=== PATIENT | female | born 1950 | race Caucasian/White ===

== ENCOUNTER → 2018-01-25 10:09 | Outpatient (CLI) | payer MEDICARE, OTHER, SELFPAY ==
[2018-01-26 10:29] LABS: Absolute Lymphocyte Count 2.17 X10^3/ul (0.83-4.51); Absolute Neutrophil Count 5.7 X10^3/uL (2.0-7.7); Basophil# 0.05 X10^3/uL; Basophil% 0.5 % (0-1); Eosinophil# 0.34 X10^3/uL; Eosinophils% 3.7 % (0-5); Hematocrit 38.6 % (37-47); Hemoglobin 11.9 g/dl (12.0-15.0); Lymphocyte # 2.17 X10^3/ul (4.0); Lymphocyte % 23.8 % (19-41); Mean Corp Hgb Conc 30.8 g/gl (32-36); Mean Corpuscular Hgb 25.9 pg (27.0-32.0); Mean Corpuscular Volume 83.9 fL (81-99); Mean Platelet Vol. 12.3 fl (6.2-12.0); Monocyte# 0.81 X10^3/uL; Monocyte% 8.9 % (0-10); Neutrophil # 5.72 X10^3/uL (2.7-7.7); Neutrophil % 62.7 % (47-70); Platelet Count 309 K/mm3 (150-450); RBC Distribution Width SD 48.5 fl (35.1-43.9); White Blood Count 9.1 K/mm3 (4.4-11.0)
[2018-01-26 10:30] LABS: POSITIVE COUNT NO; POSITIVE DIFFERENTIAL NO; POSITIVE MORPHOLOGY NO
[2018-01-26 10:40] LABS: ALB/GLOB Ratio 1.1 RATIO (0.9-2.4); AST(SGOT) 20 U/L (15-37); Alanine Aminotransfer ALT/SGPT 29 U/L (13-56); Albumin, Serum 4.2 g/dL (3.2-5.0); Alkaline Phosphatase 87 U/L (45-117); Anion Gap 10 (5-15); BUN 24 mg/dL (7-18); BUN/Creat Ratio 24.8 RATIO (10-20); Calcium,Total 9.6 mg/dL (8.5-10.1); Chloride 102 mmol/L (98-107); Cholesterol 211 mg/dL (200); Creatinine, Serum 0.97 mg/dL (0.55-1.02); EST Glomerular Filtration Rate 61 mL/min (>60); Est Glom Filt Rate - Afr Amer 73 mL/min (>60); Globulin 3.8 g/dL (2.2-4.2); Glucose 108 mg/dL (74-106); High Density Lipoprotein 47 mg/dL; Sodium Level 140 mmol/L (136-145); Triglycerides 145 mg/dL; Very Low Density Lipoprotein 29 mg/dL (5-40)
== END ==
PROVIDERS: Family Provider Nurse Practitioner; PCP Nurse Practitioner; Referring Provider Nurse Practitioner; Visit Provider Nurse Practitioner
DX: E11.65 Type 2 diabetes mellitus with hyperglycemia (principal); K58.9 Irritable bowel syndrome, unspecified; K21.0 Gastro-esophageal reflux disease with esophagitis
CPT/HCPCS: 80053; 80061; 85025

== ENCOUNTER → 2018-06-02 21:26 | Outpatient (CLI) | payer MEDICARE, OTHER, SELFPAY ==
[2018-06-02 22:25] LABS: Thyroid Stim Hormone (TSH) 2.14 uIU/mL (0.358-3.74)
== END ==
PROVIDERS: Family Provider Nurse Practitioner; PCP Nurse Practitioner; Referring Provider Nurse Practitioner; Visit Provider Nurse Practitioner
DX: E78.00 Pure hypercholesterolemia, unspecified (principal)
CPT/HCPCS: 84443

== ENCOUNTER → 2018-11-27 18:12 | Outpatient (CLI) | payer MEDICARE, OTHER, SELFPAY ==
[2018-11-27 09:50] VITALS: BMI 33.3
[2018-11-27 18:33] LABS: Absolute Lymphocyte Count 1.48 X10^3/uL (0.83-4.51); Absolute Neutrophil Count 6.1 X10^3/uL (2.0-7.7); Basophil# 0.07 X10^3/uL; Basophil% 0.8 % (0-1); Eosinophil# 0.18 X10^3/uL; Hematocrit 43.9 % (37-47); Hemoglobin 14.2 g/dL (12.0-15.0); Lymphocyte # 1.48 X10^3/ul (4.0); Lymphocyte % 16.8 % (19-41); Mean Corp Hgb Conc 32.3 g/dL (32-36); Mean Corpuscular Hgb 30.5 pg (27.0-32.0); Mean Corpuscular Volume 94.4 fL (81-99); Mean Platelet Vol. 11.4 fl (6.2-12.0); Monocyte# 0.85 X10^3/uL; Monocyte% 9.7 % (0-10); NRBC Flagged by Analyzer 0 % (0-5); Neutrophil # 6.14 X10^3/uL (2.7-7.7); Neutrophil % 69.8 % (47-70); POSITIVE COUNT YES; Platelet Count 255 K/mm3 (150-450); RBC Distribution Width CV 13.6 % (11.6-14.6); Red Blood Count 4.65 M/mm3 (4.2-5.4); White Blood Count 8.8 K/mm3 (4.4-11.0)
[2018-11-27 18:35] LABS: Differential Indicated SCAN CRITERIA MET
[2018-11-27 18:37] LABS: BUN 21 mg/dL (7-18); Creatinine, Serum 0.97 mg/dL (0.55-1.02); Glucose 206 mg/dL (74-106)
[2018-11-27 18:38] LABS: AST(SGOT) 15 U/L (15-37); Alanine Aminotransfer ALT/SGPT 28 U/L (13-56); Albumin, Serum 3.9 g/dL (3.2-5.0); Alkaline Phosphatase 93 U/L (45-117); Anion Gap 11 (5-15); BUN/Creat Ratio 21.7 RATIO (10-20); Calcium,Total 9.3 mg/dL (8.5-10.1); Chloride 104 mmol/L (98-107); EST Glomerular Filtration Rate 61 mL/min (>60); Est Glom Filt Rate - Afr Amer 73 mL/min (>60); Ferritin 38 ng/mL (8-252); Globulin 3.9 g/dL (2.2-4.2); Iron Binding Capacity,Total 386 ug/dL (250-450); Potassium 4.5 mmol/L (3.5-5.1); Protein, Total 7.8 g/dL (6.4-8.2); Sodium Level 141 mmol/L (136-145); Thyroid Stim Hormone (TSH) 1.23 uIU/mL (0.358-3.74)
[2018-11-27 18:51] LABS: Differential Comment SCANNED
[2018-11-29 09:19] LABS: Vitamin B12 789 pg/mL (211-911)
== END ==
PROVIDERS: Family Provider Nurse Practitioner; PCP Nurse Practitioner; Referring Provider Nurse Practitioner; Visit Provider Nurse Practitioner
DX: E11.9 Type 2 diabetes mellitus without complications (principal); D50.9 Iron deficiency anemia, unspecified; R53.83 Other fatigue; E53.8 Deficiency of other specified B group vitamins
CPT/HCPCS: 80053; 82607; 82728; 83550; 84443; 85025

== ENCOUNTER → 2019-08-04 | Outpatient (CLI) | payer MEDICARE, OTHER, SELFPAY ==
[2019-08-04 19:28] VITALS: BMI 32.8
[2019-08-04 20:43] LABS: Absolute Lymphocyte Count 2.35 X10^3/uL (0.83-4.51); Absolute Neutrophil Count 5.9 X10^3/uL (2.0-7.7); Basophil# 0.08 X10^3/uL; Basophil% 0.8 % (0-1); Eosinophil# 0.19 X10^3/uL; Hematocrit 43.1 % (37-47); Lymphocyte # 2.35 X10^3/ul (4.0); Lymphocyte % 24.8 % (19-41); Mean Corp Hgb Conc 32.5 g/dL (32-36); Mean Corpuscular Hgb 30.3 pg (27.0-32.0); Mean Corpuscular Volume 93.3 fL (81-99); Mean Platelet Vol. 11.1 fl (6.2-12.0); Monocyte# 0.87 X10^3/uL; Monocyte% 9.2 % (0-10); NRBC Flagged by Analyzer 0 % (0-5); Neutrophil # 5.94 X10^3/uL (2.7-7.7); Neutrophil % 62.6 % (47-70); Platelet Count 322 K/mm3 (150-450); RBC Distribution Width CV 13.3 % (11.6-14.6); RBC Distribution Width SD 44.8 fl (35.1-43.9); Red Blood Count 4.62 M/mm3 (4.2-5.4); White Blood Count 9.5 K/mm3 (4.4-11.0)
[2019-08-04 20:58] LABS: ALB/GLOB Ratio 1.1 RATIO (0.9-2.4); AST(SGOT) 22 U/L (15-37); Alanine Aminotransfer ALT/SGPT 37 U/L (13-56); Albumin, Serum 4.1 g/dL (3.2-5.0); Alkaline Phosphatase 98 U/L (45-117); Anion Gap 12 (5-15); BUN 19 mg/dL (7-18); BUN/Creat Ratio 18.4 RATIO (10-20); Calcium,Total 9.2 mg/dL (8.5-10.1); Chloride 106 mmol/L (98-107); Creatinine, Serum 1.03 mg/dL (0.55-1.02); EST Glomerular Filtration Rate 56 mL/min (>60); Est Glom Filt Rate - Afr Amer 68 mL/min (>60); Globulin 3.7 g/dL (2.2-4.2); Glucose 218 mg/dL (74-106); Potassium 4.1 mmol/L (3.5-5.1); Protein, Total 7.8 g/dL (6.4-8.2); Sodium Level 140 mmol/L (136-145); Thyroid Stim Hormone (TSH) 2.79 uIU/mL (0.358-3.74)
== END | disposition home or self-care (01) ==
PROVIDERS: PCP Nurse Practitioner; Referring Provider Nurse Practitioner; Visit Provider Nurse Practitioner
DX: N30.90 Cystitis, unspecified without hematuria (principal); R19.5 Other fecal abnormalities; E03.9 Hypothyroidism, unspecified
CPT/HCPCS: 80053; 84443; 85025

== ENCOUNTER → 2019-08-16 08:53 | Outpatient (CLI) | payer MEDICARE, OTHER, SELFPAY ==
[2019-08-04 19:28] VITALS: BMI 32.8
--- NOTE | 2019-08-16 09:02 | VDLE_ITS ---
Reason For Study: Edema left leg Procedure LEFT Exam performed in department. CFV is compressible, spontaneous, phasic, competent, and demonstrates normal augmentation. FV is compressible, spontaneous, phasic, competent and demonstrates normal augmentation. POP V is compressible, spontaneous, phasic, competent and demonstrates normal augmentation. T/P Trunk is compressible. PTV is compressible. LT PerV is compressible. SFJ is competent and measures 0.64 x 0.65 cm. GSV proximal thigh measures 0.42 x 0.42 cm. GSV at knee measures 0.41 x 0.42 cm. GSV is competent throughout. SSV at junction is competent and measures 0.21 x 0.20 cm. Interpretation Summary Deep veins of the left lower extremity are patent and compressible segmentally. There is no evidence of left lower extremity deep vein thrombosis. Valvular competence appears intact within the proximal deep venous system on the left . The left great saphenous vein appears patent and compressible segmentally. The left sapheno-femoral junction is competent . The left great saphenous vein appears segmentally competent. The left small saphenous vein is patent and competent. Ordering Physician: Edith Jefferson Referring Physician: Edith Jefferson Performed By: Macie Pacheco RVT
== END ==
PROVIDERS: PCP Nurse Practitioner; Referring Provider Nurse Practitioner; Visit Provider Nurse Practitioner
DX: R60.0 Localized edema (principal); I73.9 Peripheral vascular disease, unspecified
CPT/HCPCS: 93971

== ENCOUNTER → 2019-09-13 | Outpatient (CLI) | payer MEDICARE, OTHER, SELFPAY ==
[2019-09-13 14:59] VITALS: BMI 32.6
== END | disposition home or self-care (01) ==
LOC: LABSPEC 09-14 08:37
PROVIDERS: PCP Nurse Practitioner; Referring Provider Nurse Practitioner; Visit Provider Nurse Practitioner
DX: E11.65 Type 2 diabetes mellitus with hyperglycemia (principal); E03.9 Hypothyroidism, unspecified

== ENCOUNTER → 2019-09-13 | Outpatient (CLI) | payer MEDICARE, OTHER, SELFPAY ==
[2019-09-13 14:59] VITALS: BMI 32.6
[2019-09-13 22:10] LABS: Absolute Lymphocyte Count 2.53 X10^3/uL (0.83-4.51); Absolute Neutrophil Count 7.2 X10^3/uL (2.0-7.7); Basophil# 0.08 X10^3/uL; Basophil% 0.7 % (0-1); Eosinophil# 0.16 X10^3/uL; Eosinophils% 1.5 % (0-5); Hematocrit 43.9 % (37-47); Hemoglobin 14.2 g/dL (12.0-15.0); Lymphocyte # 2.53 X10^3/ul (4.0); Lymphocyte % 23.1 % (19-41); Mean Corp Hgb Conc 32.3 g/dL (32-36); Mean Corpuscular Hgb 30.1 pg (27.0-32.0); Mean Platelet Vol. 11.3 fl (6.2-12.0); Monocyte# 0.89 X10^3/uL; Monocyte% 8.1 % (0-10); NRBC Flagged by Analyzer 0 % (0-5); Neutrophil # 7.22 X10^3/uL (2.7-7.7); Neutrophil % 66.1 % (47-70); Platelet Count 305 K/mm3 (150-450); RBC Distribution Width CV 13.3 % (11.6-14.6); RBC Distribution Width SD 44.9 fl (35.1-43.9); Red Blood Count 4.72 M/mm3 (4.2-5.4); White Blood Count 10.9 K/mm3 (4.4-11.0)
[2019-09-13 22:35] LABS: AST(SGOT) 20 U/L (15-37); Alanine Aminotransfer ALT/SGPT 35 U/L (13-56); Alkaline Phosphatase 103 U/L (45-117); Anion Gap 12 (5-15); BUN 17 mg/dL (7-18); BUN/Creat Ratio 19.8 RATIO (10-20); Calcium,Total 9.2 mg/dL (8.5-10.1); Chloride 101 mmol/L (98-107); Cholesterol 241 mg/dL (200); Creatinine, Serum 0.86 mg/dL (0.55-1.02); EST Glomerular Filtration Rate 69 mL/min (>60); Est Glom Filt Rate - Afr Amer 84 mL/min (>60); Glucose 156 mg/dL (74-106); High Density Lipoprotein 56 mg/dL; Potassium 3.9 mmol/L (3.5-5.1); Sodium Level 135 mmol/L (136-145); Thyroid Stim Hormone (TSH) 1.25 uIU/mL (0.358-3.74); Triglycerides 244 mg/dL; Very Low Density Lipoprotein 49 mg/dL (5-40)
== END | disposition home or self-care (01) ==
LOC: LABSPEC 21:51
PROVIDERS: PCP Nurse Practitioner; Visit Provider Nurse Practitioner
DX: E11.65 Type 2 diabetes mellitus with hyperglycemia (principal); E03.9 Hypothyroidism, unspecified
CPT/HCPCS: 80053; 80061; 84443; 85025

== ENCOUNTER → 2019-12-20 | Outpatient (CLI) | payer MEDICARE, OTHER, SELFPAY ==
[2019-12-20 15:15] VITALS: BMI 33.1
== END | disposition home or self-care (01) ==
PROVIDERS: PCP Nurse Practitioner; Referring Provider Nurse Practitioner; Visit Provider Nurse Practitioner
DX: N30.90 Cystitis, unspecified without hematuria (principal)
CPT/HCPCS: 87086; 87088

== ENCOUNTER → 2020-03-19 | Outpatient (CLI) | payer MEDICARE, SELFPAY ==
[2020-03-19 15:19] VITALS: BMI 31.6
[2020-03-19 22:22] LABS: Absolute Lymphocyte Count 2.16 X10^3/uL (0.83-4.51); Absolute Neutrophil Count 8.2 X10^3/uL (2.0-7.7); Basophil# 0.06 X10^3/uL; Basophil% 0.5 % (0-1); Eosinophil# 0.14 X10^3/uL; Eosinophils% 1.2 % (0-5); Hematocrit 44.8 % (37-47); Lymphocyte # 2.16 X10^3/ul (4.0); Lymphocyte % 18.9 % (19-41); Mean Corp Hgb Conc 31.3 g/dL (32-36); Mean Corpuscular Hgb 29.2 pg (27.0-32.0); Mean Corpuscular Volume 93.3 fL (81-99); Mean Platelet Vol. 10.8 fl (6.2-12.0); Monocyte# 0.75 X10^3/uL; Monocyte% 6.6 % (0-10); NRBC Flagged by Analyzer 0 % (0-5); Neutrophil # 8.15 X10^3/uL (2.7-7.7); Neutrophil % 71.6 % (47-70); Platelet Count 433 K/mm3 (150-450); RBC Distribution Width CV 14.1 % (11.6-14.6); RBC Distribution Width SD 47.7 fl (35.1-43.9); White Blood Count 11.4 K/mm3 (4.4-11.0)
[2020-03-19 22:43] LABS: Hemoglobin A1c 9.1 % (3.8-5.6)
== END | disposition home or self-care (01) ==
PROVIDERS: PCP Nurse Practitioner; Referring Provider Nurse Practitioner; Visit Provider Nurse Practitioner
DX: E11.65 Type 2 diabetes mellitus with hyperglycemia (principal)
CPT/HCPCS: 83036; 85025

== ENCOUNTER → 2020-10-23 | Outpatient (CLI) | payer MEDICARE, OTHER, SELFPAY ==
[2020-10-23 18:41] VITALS: BMI 30.1
[2020-10-23 21:39] LABS: Hematocrit 42.8 % (37-47); Hemoglobin 13.7 g/dL (12.0-15.0); Mean Corpuscular Hgb 29.5 pg (27.0-32.0); Mean Corpuscular Volume 92.2 fL (81-99); Platelet Count 333 K/mm3 (150-450); RBC Distribution Width CV 13.2 % (11.6-14.6); RBC Distribution Width SD 44.9 fl (35.1-43.9); Red Blood Count 4.64 M/mm3 (4.2-5.4); White Blood Count 9.2 K/mm3 (4.4-11.0)
[2020-10-23 22:12] LABS: AST(SGOT) 15 U/L (15-37); Alanine Aminotransfer ALT/SGPT 30 U/L (13-56); Albumin, Serum 3.9 g/dL (3.2-5.0); Alkaline Phosphatase 99 U/L (45-117); BUN 14 mg/dL (7-18); BUN/Creat Ratio 16.7 RATIO (10-20); Calcium,Total 9.4 mg/dL (8.5-10.1); Cholesterol 240 mg/dL (200); Creatinine, Serum 0.84 mg/dL (0.55-1.02); EST Glomerular Filtration Rate 71 mL/min (>60); Est Glom Filt Rate - Afr Amer 86 mL/min (>60); Globulin 3.9 g/dL (2.2-4.2); Glucose 158 mg/dL (74-106); Protein, Total 7.8 g/dL (6.4-8.2)
[2020-10-23 22:13] LABS: Anion Gap 12 (5-15); Chloride 104 mmol/L (98-107); High Density Lipoprotein 56 mg/dL; Sodium Level 138 mmol/L (136-145); Thyroid Stim Hormone (TSH) 2.03 uIU/mL (0.358-3.74); Triglycerides 182 mg/dL; Very Low Density Lipoprotein 36 mg/dL (5-40)
== END | disposition home or self-care (01) ==
PROVIDERS: PCP Nurse Practitioner; Visit Provider Nurse Practitioner
DX: I10 Essential (primary) hypertension (principal); D50.9 Iron deficiency anemia, unspecified; E03.9 Hypothyroidism, unspecified; E78.00 Pure hypercholesterolemia, unspecified
CPT/HCPCS: 80053; 80061; 84443; 85027

== ENCOUNTER → 2021-01-23 | Outpatient (CLI) | payer MEDICARE, OTHER, SELFPAY ==
[2021-01-23 21:58] LABS: Absolute Lymphocyte Count 2.08 X10^3/uL (0.83-4.51); Absolute Neutrophil Count 5.2 X10^3/uL (2.0-7.7); Basophil# 0.08 X10^3/uL; Eosinophil# 0.21 X10^3/uL; Eosinophils% 2.5 % (0-5); Lymphocyte # 2.08 X10^3/ul (0.83-4.51); Lymphocyte % 24.7 % (19-41); Mean Corp Hgb Conc 31.8 g/dL (32-36); Mean Corpuscular Hgb 29.7 pg (27.0-32.0); Mean Corpuscular Volume 93.2 fL (81-99); Monocyte# 0.76 X10^3/uL; NRBC Flagged by Analyzer 0 % (0-5); Neutrophil # 5.23 X10^3/uL (2.7-7.7); Neutrophil % 62.2 % (47-70); Platelet Count 354 K/mm3 (150-450); RBC Distribution Width CV 13.2 % (11.6-14.6); RBC Distribution Width SD 45.1 fl (35.1-43.9); Red Blood Count 4.72 M/mm3 (4.2-5.4); White Blood Count 8.4 K/mm3 (4.4-11.0)
[2021-01-23 22:22] LABS: AST(SGOT) 27 U/L (15-37); Alanine Aminotransfer ALT/SGPT 42 U/L (13-56); Albumin, Serum 3.8 g/dL (3.2-5.0); Alkaline Phosphatase 99 U/L (45-117); Anion Gap 7 (5-15); BUN 17 mg/dL (7-18); BUN/Creat Ratio 15.6 RATIO (10-20); Calcium,Total 9.4 mg/dL (8.5-10.1); Chloride 106 mmol/L (98-107); Cholesterol 227 mg/dL (200); Creatinine, Serum 1.09 mg/dL (0.55-1.02); EST Glomerular Filtration Rate 53 mL/min (>60); Est Glom Filt Rate - Afr Amer 64 mL/min (>60); Glucose 174 mg/dL (74-106); High Density Lipoprotein 47 mg/dL; Protein, Total 7.8 g/dL (6.4-8.2); Sodium Level 139 mmol/L (136-145); Triglycerides 227 mg/dL; Very Low Density Lipoprotein 45 mg/dL (5-40)
== END | disposition home or self-care (01) ==
PROVIDERS: PCP Nurse Practitioner; Visit Provider Nurse Practitioner
DX: I10 Essential (primary) hypertension (principal); I49.9 Cardiac arrhythmia, unspecified; E03.9 Hypothyroidism, unspecified; E11.65 Type 2 diabetes mellitus with hyperglycemia
CPT/HCPCS: 80053; 80061; 83036; 85025

== ENCOUNTER → 2021-09-02 | Outpatient (CLI) | payer MEDICARE, OTHER, SELFPAY ==
--- NOTE | 2021-09-02 12:11 | MRI_ITS ---
EXAM: MR HEAD WITHOUT AND WITH INTRAVENOUS CONTRAST CLINICAL INDICATION: increasing pain in the head new onset headaches TECHNIQUE: Multiplanar and multisequence MR images of the brain were obtained without and with intravenous contrast. This report was created using [employer] report [employer] technology. CONTRAST: IV Yes YES COMPARISON: None. FINDINGS: BRAIN AND EXTRA-AXIAL SPACES: Unremarkable. No intra- or extra-axial hemorrhage. No evidence of acute infarct. No intracranial mass or mass effect. There is preservation of the payan/white matter interface. Posterior fossa structures are unremarkable. Ventricles are appropriate for age. No hydrocephalus. Basal cisterns are patent. SELLA: Unremarkable. Normal sella turcica, pituitary gland, infundibular stalk, optic chiasm and hypothalamus. AUDITORY SYSTEM: Unremarkable. The internal auditory canals are patent. BONES/JOINTS: Unremarkable. No discrete lytic or blastic abnormalities. SINUSES: Unremarkable as visualized. Clear. MASTOID AIR CELLS: Unremarkable as visualized. Clear. ORBITS: Unremarkable as visualized. Both globes, extraocular muscles, optic nerves and retrobulbar fat appear unremarkable. VASCULATURE: Unremarkable as visualized. Normal flow voids in the major intracranial circulation. MRI/Brain W/WO Contrast IMPRESSION: Negative MRI brain without and with intravenous contrast. Electronically Signed: Petar Stallings MD at 14:23 EDT ,
--- NOTE | 2021-09-02 12:11 | MRI_ITS ---
EXAM: MR CERVICAL SPINE WITHOUT AND WITH INTRAVENOUS CONTRAST CLINICAL INDICATION: neck pain with shooting pains into head -- TECHNIQUE: Multiplanar and multisequence MR images of the cervical spine without and with intravenous contrast were performed. This report was created using [employer] report [employer] technology. CONTRAST: IV 20ML DOTAREM COMPARISON: None. FINDINGS: VERTEBRAE: There is straightening of the normal cervical lordosis. SPINAL CORD: Unremarkable in signal and morphology. SOFT TISSUES: Unremarkable. No prevertebral soft tissue swelling. LYMPH NODES: Unremarkable. There is no cervical adenopathy. DISCS/SPINAL CANAL/NEURAL FORAMINA: C2-C3: C2-3: Normal endplates. Disc dessication. Normal central canal and intervertebral neuroforamina. C3-C4: C3-4: Normal endplates. Disc dessication. Normal central canal and intervertebral neuroforamina. C4-C5: C4-5: Loss of intervertebral disc height. There is endplate spondylosis of the vertebral body. Narrowing of the left intervertebral neuroforamina. There is bilateral facet arthropathy. Posterior disc bulge. Normal spinal canal. C5-C6: C5-6: Loss of intervertebral disc height. There is endplate spondylosis of the vertebral body. Narrowing of the left intervertebral neuroforamina. There is bilateral facet arthropathy. Left paracentral disc herniation. Impression upon the anterior thecal sac. Mild compression of the left side of the spinal cord. There is narrowing of the left lateral recess. C6-C7: C6-7: Loss of intervertebral disc height. There is endplate spondylosis of the vertebral body. Narrowing of the left intervertebral neuroforamina. There is bilateral facet arthropathy. Posterior disc bulge. Normal spinal canal. C7-T1: Loss of intervertebral disc height. There is endplate spondylosis of the vertebral body. Narrowing of the bilateral intervertebral neuroforamina. There is bilateral facet arthropathy. Posterior disc bulge. Normal spinal canal. MRI/Spine Cervical W/WO Contrast IMPRESSION: 1. C4-5: Loss of intervertebral disc height. There is endplate spondylosis of the vertebral body. Narrowing of the left intervertebral neuroforamina. There is bilateral facet arthropathy. Posterior disc bulge. 2. C5-6: Loss of intervertebral disc height. There is endplate spondylosis of the vertebral body. Narrowing of the left intervertebral neuroforamina. There is bilateral facet arthropathy. Left paracentral disc herniation. Impression upon the anterior thecal sac. Mild compression of the left side of the spinal cord. There is narrowing of the left lateral recess. 3. C6-7: Loss of intervertebral disc height. There is endplate spondylosis of the vertebral body. Narrowing of the left intervertebral neuroforamina. There is bilateral facet arthropathy. Posterior disc bulge. 4. Loss of intervertebral disc height. There is endplate spondylosis of the vertebral body. Narrowing of the bilateral intervertebral neuroforamina. There is bilateral facet arthropathy. Posterior disc bulge. 5. Multilevel degenerative changes, as described above. 6. There is altered curvature of the normal cervical lordosis. This can suggest neck strain. Electronically Signed: Petar Stallings MD at 14:44 EDT ,
[2021-09-02 12:36] LABS: CREATININE FINGERSTICK < 0.9 mg/dL (0.55-1.02); EGFR FINGERSTICK > 60.0000 mL/min (>60)
== END | disposition home or self-care (01) ==
LOC: MRI 12:11
PROVIDERS: PCP Nurse Practitioner; Visit Provider Nurse Practitioner
DX: I63.9 Cerebral infarction, unspecified (principal); G43.61 Persistent migraine aura with cerebral infarction, intractable; R42 Dizziness and giddiness
CPT/HCPCS: 70553; 72156; A9575

== ENCOUNTER → 2021-11-18 | Outpatient (CLI) | payer MEDICARE, OTHER, SELFPAY ==
[2021-11-18 23:03] LABS: Absolute Lymphocyte Count 2.03 X10^3/uL (0.83-4.51); Absolute Neutrophil Count 6.1 X10^3/uL (2.0-7.7); Basophil# 0.07 X10^3/uL; Basophil% 0.8 % (0-1); Eosinophil# 0.16 X10^3/uL; Eosinophils% 1.7 % (0-5); Hematocrit 40.6 % (37-47); Hemoglobin 13.2 g/dL (12.0-15.0); Lymphocyte # 2.03 X10^3/ul (0.83-4.51); Lymphocyte % 22.2 % (19-41); Mean Corp Hgb Conc 32.5 g/dL (32-36); Mean Corpuscular Hgb 29.8 pg (27.0-32.0); Mean Corpuscular Volume 91.6 fL (81-99); Monocyte% 7.6 % (0-10); NRBC Flagged by Analyzer 0 % (0-5); Neutrophil # 6.13 X10^3/uL (2.7-7.7); Neutrophil % 66.9 % (47-70); Platelet Count 297 K/mm3 (150-450); RBC Distribution Width CV 13.4 % (11.6-14.6); RBC Distribution Width SD 45.5 fl (35.1-43.9); Red Blood Count 4.43 M/mm3 (4.2-5.4); White Blood Count 9.2 K/mm3 (4.4-11.0)
[2021-11-18 23:36] LABS: Hemoglobin A1c 11.2 % (3.8-5.6)
[2021-11-18 23:38] LABS: AST(SGOT) 25 U/L (15-37); Alanine Aminotransfer ALT/SGPT 40 U/L (13-56); Albumin, Serum 3.6 g/dL (3.2-5.0); Alkaline Phosphatase 127 U/L (45-117); Anion Gap 10 (5-15); BUN 23 mg/dL (7-18); BUN/Creat Ratio 23.6 RATIO (10-20); Calcium,Total 9.4 mg/dL (8.5-10.1); Chloride 101 mmol/L (98-107); Cholesterol 224 mg/dL (200); Creatinine, Serum 0.97 mg/dL (0.55-1.02); EST Glomerular Filtration Rate 60 mL/min (>60); Est Glom Filt Rate - Afr Amer 72 mL/min (>60); Globulin 3.6 g/dL (2.2-4.2); Glucose 452 mg/dL (74-106); High Density Lipoprotein 60 mg/dL; Potassium 4.3 mmol/L (3.5-5.1); Protein, Total 7.2 g/dL (6.4-8.2); Sodium Level 133 mmol/L (136-145); Thyroid Stim Hormone (TSH) 1.96 uIU/mL (0.358-3.74); Triglycerides 164 mg/dL; Very Low Density Lipoprotein 33 mg/dL (5-40)
== END | disposition home or self-care (01) ==
PROVIDERS: PCP Nurse Practitioner; Visit Provider Nurse Practitioner
DX: I10 Essential (primary) hypertension (principal); E11.65 Type 2 diabetes mellitus with hyperglycemia; E03.9 Hypothyroidism, unspecified
CPT/HCPCS: 80053; 80061; 83036; 84443; 85025

== ENCOUNTER → 2021-12-27 | Outpatient (CLI) | payer MEDICARE, OTHER, SELFPAY | END | disposition home or self-care (01) | PROVIDERS: PCP Nurse Practitioner; Visit Provider Nurse Practitioner | DX: R53.83 Other fatigue (principal) | CPT/HCPCS: 87086; 87088 ==

== ENCOUNTER → 2022-06-04 | Outpatient (CLI) | payer MEDICARE, OTHER, SELFPAY ==
[2022-06-04 21:08] LABS: Absolute Lymphocyte Count 2.12 X10^3/uL (0.83-4.51); Absolute Neutrophil Count 5.6 X10^3/uL (2.0-7.7); Basophil# 0.08 X10^3/uL; Basophil% 0.9 % (0-1); Eosinophil# 0.41 X10^3/uL; Eosinophils% 4.5 % (0-5); Hematocrit 38.6 % (37-47); Hemoglobin 12.7 g/dL (12.0-15.0); Lymphocyte # 2.12 X10^3/ul (0.83-4.51); Lymphocyte % 23.1 % (19-41); Mean Corp Hgb Conc 32.9 g/dL (32-36); Mean Corpuscular Hgb 30.3 pg (27.0-32.0); Mean Corpuscular Volume 92.1 fL (81-99); Mean Platelet Vol. 11.1 fl (6.2-12.0); Monocyte# 0.89 X10^3/uL; Monocyte% 9.7 % (0-10); NRBC Flagged by Analyzer 0 % (0-5); Neutrophil # 5.64 X10^3/uL (2.7-7.7); Neutrophil % 61.4 % (47-70); Platelet Count 322 K/mm3 (150-450); RBC Distribution Width CV 13.3 % (11.6-14.6); RBC Distribution Width SD 44.8 fl (35.1-43.9); Red Blood Count 4.19 M/mm3 (4.2-5.4); White Blood Count 9.2 K/mm3 (4.4-11.0)
[2022-06-04 21:25] LABS: AST(SGOT) 52 U/L (15-37); Alanine Aminotransfer ALT/SGPT 48 U/L (13-56); Albumin, Serum 3.8 g/dL (3.2-5.0); Alkaline Phosphatase 85 U/L (45-117); Anion Gap 13 (5-15); BUN 15 mg/dL (7-18); BUN/Creat Ratio 16.9 RATIO (10-20); CRP, High Sensitivity Cardiac 3.01 mg/L; Calcium,Total 9.8 mg/dL (8.5-10.1); Chloride 102 mmol/L (98-107); Cholesterol 212 mg/dL (200); Creatinine, Serum 0.89 mg/dL (0.55-1.02); EST Glomerular Filtration Rate 66 mL/min (>60); Est Glom Filt Rate - Afr Amer 80 mL/min (>60); Globulin 3.8 g/dL (2.2-4.2); Glucose 183 mg/dL (74-106); High Density Lipoprotein 53 mg/dL; Potassium 4.2 mmol/L (3.5-5.1); Protein, Total 7.6 g/dL (6.4-8.2); Sodium Level 138 mmol/L (136-145); Triglycerides 190 mg/dL; Very Low Density Lipoprotein 38 mg/dL (5-40)
== END | disposition home or self-care (01) ==
PROVIDERS: PCP Nurse Practitioner; Visit Provider Nurse Practitioner
DX: I25.10 Atherosclerotic heart disease of native coronary artery without angina pectoris (principal); K30 Functional dyspepsia; R42 Dizziness and giddiness; E66.09 Other obesity due to excess calories
CPT/HCPCS: 80053; 80061; 85025; 86141

== ENCOUNTER → 2022-06-06 | Outpatient (CLI) | payer MEDICARE, SELFPAY ==
[2022-06-06 12:56] LABS: BNP,B-Type NATRIURETIC PEPTIDE 17.3 pg/mL (0-100)
== END | disposition home or self-care (01) ==
LOC: LAB 10:59
PROVIDERS: PCP Nurse Practitioner; Referring Provider Nurse Practitioner Family; Visit Provider Nurse Practitioner Family
DX: R06.09 Other forms of dyspnea (principal)
CPT/HCPCS: 36415; 83880

== ENCOUNTER → 2022-06-18 | Outpatient (CLI) | payer MEDICARE, OTHER, SELFPAY ==
--- NOTE | 2022-06-18 12:48 | ECHOD_ITS ---
Reason For Study: Dyspnea/SOB Procedure This was a 2D Doppler, Color Flow transthoracic echocardiogram. Myocardial strain analysis was performed in this exam to aid in the assessment of cardiac function. Exam performed in department. Left Ventricle Normal size and thickness. The left ventricular ejection fraction is 65 %. Normal diastology for age. The global longitudinal strain = -18.3 % (normal). Right Ventricle Mildly dilated right ventricle. Mild global right ventricular systolic dysfunction. Atria Normal left atrium. The right atrium is mildly enlarged. Mitral Valve Mild (1+) mitral valve insufficiency. Tricuspid Valve Normal tricuspid valve. Aortic Valve Normal aortic valve. Pulmonic Valve The pulmonic valve is not well visualized. Mild (1+) pulmonic valve insufficiency. Great Vessels Normal sized aortic root. Pericardium/Pleural No pericardial effusion. MMode/2D Measurements & Calculations LVIDd: 4.9 cm IVSd: 0.94 cm Ao root diam: 2.8 cm LVIDs: 2.9 cm LVPWd: 1.0 cm RVDd: 3.3 cm FS: 41.0 % LAV(MOD-bp): 29.3 ml LVAd ap4: 21.9 cm2 SV(MOD-sp4): 36.2 ml LAV(MOD-bp) Indexed: 13.6 ml/m2 LVLd ap4: 7.1 cm LAV(MOD-sp2): 37.9 ml EDV(MOD-sp4): 54.9 ml LAV(MOD-sp4): 21.6 ml EDV(sp4-el): 57.4 ml LVAs ap4: 11.1 cm2 LVLs ap4: 5.8 cm ESV(MOD-sp4): 18.7 ml ESV(sp4-el): 17.9 ml EF(MOD-sp4): 66.0 % EF(sp4-el): 68.8 % SV(sp4-el): 39.5 ml LA A4 area: 11.2 cm2 LA dimension(2D): 3.7 cm RA A4 area: 8.5 cm2 Time Measurements MV dec time: 0.27 sec Doppler Measurements & Calculations MV E max luis a: 63.3 cm/sec Lat Peak E' Luis A: 8.7 cm/sec Med Peak E' Luis A: 7.4 cm/sec MV A max luis a: 91.4 cm/sec E/E' lat: 7.3 E/E' med: 8.6 MV E/A: 0.69 Ao V2 max: 126.8 cm/sec LV V1 max: 105.5 cm/sec MV dec slope: 236.2 cm/sec2 Ao max P.4 mmHg LV V1 max P.5 mmHg Ao V2 mean: 87.9 cm/sec Ao mean P.4 mmHg Ao V2 VTI: 26.8 cm PA V2 max: 111.8 cm/sec PI end-d luis a: 135.8 cm/sec TR max luis a: 228.4 cm/sec TR max P.9 mmHg ECHO/Echo Complete Interpretation Summary The left ventricular ejection fraction is 65 %. The global longitudinal strain = -18.3 % (normal). Mildly dilated right ventricle. Mild global right ventricular systolic dysfunction. The right atrium is mildly enlarged. Mild (1+) mitral valve insufficiency. Mild (1+) pulmonic valve insufficiency. Ordering Physician: Jarad Miller Referring Physician: Edith Jefferson Performed By: Minerva Miller, BRIAN, RVT
== END | disposition home or self-care (01) ==
PROVIDERS: PCP Nurse Practitioner; Referring Provider Nurse Practitioner Family; Visit Provider Nurse Practitioner Family
DX: R06.02 Shortness of breath (principal)
CPT/HCPCS: 93306

== ENCOUNTER → 2022-10-17 | Outpatient (CLI) | payer MEDICARE, SELFPAY ==
[2022-10-17 20:49] LABS: Absolute Lymphocyte Count 2.08 X10^3/uL (0.83-4.51); Absolute Neutrophil Count 6.6 X10^3/uL (2.0-7.7); Basophil# 0.07 X10^3/uL; Basophil% 0.7 % (0-1); Eosinophil# 0.15 X10^3/uL; Eosinophils% 1.5 % (0-5); Hematocrit 41.8 % (37-47); Hemoglobin 13.6 g/dL (12.0-15.0); Lymphocyte # 2.08 X10^3/ul (0.83-4.51); Lymphocyte % 21.3 % (19-41); Mean Corp Hgb Conc 32.5 g/dL (32-36); Mean Corpuscular Hgb 29.2 pg (27.0-32.0); Mean Corpuscular Volume 89.9 fL (81-99); Mean Platelet Vol. 11.4 fl (6.2-12.0); Monocyte# 0.79 X10^3/uL; Monocyte% 8.1 % (0-10); NRBC Flagged by Analyzer 0 % (0-5); Neutrophil # 6.62 X10^3/uL (2.7-7.7); Platelet Count 344 K/mm3 (150-450); RBC Distribution Width CV 13.5 % (11.6-14.6); Red Blood Count 4.65 M/mm3 (4.2-5.4); White Blood Count 9.8 K/mm3 (4.4-11.0)
[2022-10-17 21:09] LABS: AST(SGOT) 51 U/L (15-37); Alanine Aminotransfer ALT/SGPT 48 U/L (13-56); Albumin, Serum 3.8 g/dL (3.2-5.0); Alkaline Phosphatase 108 U/L (45-117); Anion Gap 10 (5-15); BUN 16 mg/dL (7-18); BUN/Creat Ratio 15.1 RATIO (10-20); CRP, High Sensitivity Cardiac 4.64 mg/L; Calcium,Total 9.1 mg/dL (8.5-10.1); Chloride 99 mmol/L (98-107); Cholesterol 219 mg/dL (200); Creatinine, Serum 1.06 mg/dL (0.55-1.02); EST Glomerular Filtration Rate 54 mL/min (>60); Est Glom Filt Rate - Afr Amer 65 mL/min (>60); Globulin 3.9 g/dL (2.2-4.2); Glucose 407 mg/dL (74-106); High Density Lipoprotein 47 mg/dL; Potassium 4.2 mmol/L (3.5-5.1); Protein, Total 7.7 g/dL (6.4-8.2); Sodium Level 133 mmol/L (136-145); Triglycerides 291 mg/dL; Very Low Density Lipoprotein 58 mg/dL (5-40)
[2022-10-17 21:14] LABS: Hemoglobin A1c 12.1 % (3.8-5.6)
== END | disposition home or self-care (01) ==
PROVIDERS: PCP Nurse Practitioner; Visit Provider Nurse Practitioner
DX: I10 Essential (primary) hypertension (principal); E11.65 Type 2 diabetes mellitus with hyperglycemia; E03.9 Hypothyroidism, unspecified; E66.09 Other obesity due to excess calories; R53.83 Other fatigue
CPT/HCPCS: 80053; 80061; 83036; 84443; 85025; 86141

== ENCOUNTER → 2023-10-15 | Outpatient (CLI) | payer MEDICARE, OTHER, SELFPAY ==
[2023-10-15 21:10] LABS: Absolute Lymphocyte Count 2.12 X10^3/uL (0.83-4.51); Absolute Neutrophil Count 6.8 X10^3/uL (2.0-7.7); Basophil# 0.08 X10^3/uL; Basophil% 0.8 % (0-1); Eosinophil# 0.15 X10^3/uL; Eosinophils% 1.5 % (0-5); Hematocrit 41.9 % (37-47); Hemoglobin 13.8 g/dL (12.0-15.0); Lymphocyte # 2.12 X10^3/ul (0.83-4.51); Lymphocyte % 20.9 % (19-41); Mean Corp Hgb Conc 32.9 g/dL (32-36); Mean Corpuscular Hgb 30.1 pg (27.0-32.0); Mean Corpuscular Volume 91.3 fL (81-99); Mean Platelet Vol. 11.8 fl (6.2-12.0); Monocyte# 0.89 X10^3/uL; Monocyte% 8.8 % (0-10); NRBC Flagged by Analyzer 0 % (0-5); Neutrophil # 6.82 X10^3/uL (2.7-7.7); Neutrophil % 67.4 % (47-70); Platelet Count 318 K/mm3 (150-450); RBC Distribution Width CV 13.2 % (11.6-14.6); RBC Distribution Width SD 43.8 fl (35.1-43.9); Red Blood Count 4.59 M/mm3 (4.2-5.4); White Blood Count 10.1 K/mm3 (4.4-11.0)
[2023-10-15 22:05] LABS: AST(SGOT) 35 U/L (15-37); Alanine Aminotransfer ALT/SGPT 41 U/L (13-56); Alkaline Phosphatase 110 U/L (45-117); Anion Gap 12 (5-15); BUN 18 mg/dL (7-18); BUN/Creat Ratio 15.4 RATIO (10-20); Calcium,Total 10.5 mg/dL (8.5-10.1); Chloride 98 mmol/L (98-107); Cholesterol 249 mg/dL (200); Creatinine, Serum 1.17 mg/dL (0.55-1.02); EST Glomerular Filtration Rate 48 mL/min (>60); Est Glom Filt Rate - Afr Amer 58 mL/min (>60); Globulin 3.9 g/dL (2.2-4.2); Glucose 536 mg/dL (74-106); High Density Lipoprotein 54 mg/dL; Potassium 4.2 mmol/L (3.5-5.1); Protein, Total 7.9 g/dL (6.4-8.2); Sodium Level 133 mmol/L (136-145); Triglycerides 342 mg/dL; Very Low Density Lipoprotein 68 mg/dL (5-40)
[2023-10-15 22:06] LABS: Hemoglobin A1c 10.1 % (3.8-5.6)
== END | disposition home or self-care (01) ==
PROVIDERS: PCP Nurse Practitioner; Referring Provider Nurse Practitioner; Visit Provider Nurse Practitioner
DX: K58.9 Irritable bowel syndrome, unspecified (principal); E11.65 Type 2 diabetes mellitus with hyperglycemia; D50.9 Iron deficiency anemia, unspecified; I10 Essential (primary) hypertension; E03.9 Hypothyroidism, unspecified; E78.00 Pure hypercholesterolemia, unspecified
CPT/HCPCS: 80053; 80061; 83036; 85025

== ENCOUNTER → 2023-10-28 | Outpatient (CLI) | payer MEDICARE, OTHER, SELFPAY | END | disposition home or self-care (01) | PROVIDERS: PCP Nurse Practitioner; Visit Provider Nurse Practitioner | DX: N30.90 Cystitis, unspecified without hematuria (principal); R31.9 Hematuria, unspecified | CPT/HCPCS: 87086 ==

== ENCOUNTER → 2024-08-23 | Outpatient (CLI) | payer MEDICARE, OTHER, SELFPAY ==
[2024-08-23 21:57] LABS: Absolute Lymphocyte Count 2.48 X10^3/uL (0.83-4.51); Absolute Neutrophil Count 6.2 X10^3/uL (2.0-7.7); Basophil# 0.07 X10^3/uL; Basophil% 0.7 % (0-1); Eosinophil# 0.21 X10^3/uL; Eosinophils% 2.1 % (0-5); Hematocrit 39.6 % (37-47); Hemoglobin 12.8 g/dL (12.0-15.0); Lymphocyte # 2.48 X10^3/ul (0.83-4.51); Lymphocyte % 24.8 % (19-41); Mean Corp Hgb Conc 32.3 g/dL (32-36); Mean Corpuscular Hgb 30.3 pg (27.0-32.0); Mean Corpuscular Volume 93.6 fL (81-99); Mean Platelet Vol. 10.8 fl (6.2-12.0); Monocyte# 1.04 X10^3/uL; Monocyte% 10.4 % (0-10); NRBC Flagged by Analyzer 0 % (0-5); Neutrophil # 6.16 X10^3/uL (2.7-7.7); Neutrophil % 61.4 % (47-70); Platelet Count 350 K/mm3 (150-450); RBC Distribution Width CV 13.9 % (11.6-14.6); RBC Distribution Width SD 47.2 fl (35.1-43.9); Red Blood Count 4.23 M/mm3 (4.2-5.4)
[2024-08-23 22:33] LABS: ALB/GLOB Ratio 1.3 RATIO (0.9-2.4); AST(SGOT) 21 U/L (<=31); Alanine Aminotransfer ALT/SGPT 14 U/L (<=34); Albumin, Serum 4.2 g/dL (3.4-4.8); Alkaline Phosphatase 76 U/L (35-104); Anion Gap 16 (5-15); BUN 20 mg/dL (4-19); BUN/Creat Ratio 23.1 RATIO (10-20); Calcium,Total 10.1 mg/dL (7.6-11.0); Carbon Dioxide 20.1 mmol/L (21.0-32.0); Chloride 103 mmol/L (98-108); Cholesterol 217 mg/dL (<=200); Creatinine, Serum 0.86 mg/dL (0.70-1.20); EST Glomerular Filtration Rate 70 (>60); Globulin 3.2 g/dL (2.2-4.2); Glucose 143 mg/dL (70-99); High Density Lipoprotein 54 mg/dL; Low Density Lipoprotein Calc. 132 mg/dL; Potassium 4.1 mmol/L (3.3-5.1); Protein, Total 7.4 g/dL (5.9-8.4); Sodium Level 138 mmol/L (133-145); Total Bilirubin 0.52 mg/dL (0.00-1.30); Triglycerides 156 mg/dL; Very Low Density Lipoprotein 31 mg/dL (5-40); cholesterol:hdl ratio screen 4.05
[2024-08-23 22:50] LABS: Hemoglobin A1c 7.3 % (<=5.6)
== END | disposition home or self-care (01) ==
PROVIDERS: PCP Nurse Practitioner; Visit Provider Nurse Practitioner
DX: R31.9 Hematuria, unspecified (principal); E11.65 Type 2 diabetes mellitus with hyperglycemia; E03.9 Hypothyroidism, unspecified; D50.9 Iron deficiency anemia, unspecified; E78.00 Pure hypercholesterolemia, unspecified; I10 Essential (primary) hypertension; K21.00 Gastro-esophageal reflux disease with esophagitis, without bleeding
CPT/HCPCS: 80053; 80061; 83036; 84443; 85025; 87086